=== PATIENT | male | born 1980 | race Caucasian/White ===

== ENCOUNTER 2019-08-09 11:49 | Emergency (ER) | payer SELFPAY ==
[2019-08-09 11:55] VITALS: BP 141/89; PULSE 67; TEMP 98.5; BMI 38.6
--- NOTE | 2019-08-09 12:12 | PDOC ---
History of Present Illness - General Chief Complaint: Pain, Acute Stated Complaint: NECK PAIN Time Seen by Provider: 08/09/19 12:02 - History of Present Illness Initial Comments: 08/09/19 12:24 Chief complaint: Right ear pain, bloody discharge, and dizziness HPI: Above symptoms for several days. Recent URI which has otherwise resolved. Review of systems: Denies fever/chills, URI symptoms, sore throat, cough, chest pain, shortness of breath, abdominal pain, nausea, vomiting, diarrhea, visual or focal neurologic symptoms, unsteadiness of gait, dysuria or other urinary tract symptoms. Remainder of systems reviewed and negative Past medical history: Otherwise healthy, no current medical or surgical problems. 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 Family history: Reviewed and noncontributory including early coronary artery disease, metabolic diseases including diabetes, or cancer Physical exam: Alert, cheerful and cooperative, mild distress due to right ear pain. Does not appear to be dizzy, vertiginous, or have unsteady gait Afebrile, vital signs normal HEENT: Clear except for the right ear, TM is injected and perforated with small amount of bloody drainage. Canal is clear Neck supple without bruit mass or nodes Lungs clear, full breath sounds bilaterally, no wheezes rales or rhonchi CV regular without murmur rub or gallop Abdomen soft nontender without mass organomegaly Neurological C2 to 12 intact except for decreased hearing in the right ear. Strength full and symmetric. No focal sensorimotor deficits. Gait stable and unimpaired Skin clear, no rash, adequate turgor and wet mucous membranes Extremities no CCE Impression: Resolving URI, perforated TM, irritation of the labyrinth Plan: Ear occlusion. Keep clean and dry. Antibiotic, meclizine, and ibuprofen. Follow-up ENT as directed. Fully ambulatory, pain improved, no ataxia discharged to follow-up as directed Past History - Past Medical History Allergies/Adverse Reactions: Allergies Allergy/AdvReac Type Severity Reaction Status Date / Time No Known Allergies Allergy Verified 08/09/19 11:49 Home Medications: Ambulatory Orders No Home Medications 0 dose .ROUTE UTDICT 05/27/12 Ibuprofen 800 mg PO TID PRN #20 tablet 08/09/19 Meclizine HCl [Antivert -] 25 - 50 mg PO TID PRN #20 tablet 08/09/19 Penicillin V Potassium [Pen Vee K -] 500 mg PO BID #20 tablet 08/09/19 COPD: No - Psycho Social/Smoking Cessation Hx Smoking Status: No Smoking History: Never smoked Have you smoked in the past 12 months: No Number of Cigarettes Smoked Daily: 0 Hx Alcohol Use: No Drug/Substance Use Hx: No Substance Use Type: None *Physical Exam - Vital Signs Last Vital Signs Temp Pulse Resp BP Pulse Ox 98.5 F 67 18 141/89 100 08/09/19 11:49 08/09/19 11:49 08/09/19 11:49 08/09/19 11:49 08/09/19 11:49 Discharge - Discharge Information Problems reviewed: Yes Clinical Impression/Diagnosis: Vertigo Perforated tympanic membrane Qualifiers: Laterality: right Qualified Code(s): H72.91 - Unspecified perforation of tympanic membrane, right ear Condition: Improved Disposition: HOME - Admission No - Additional Discharge Information Prescriptions: Ibuprofen 800 mg PO TID PRN #20 tablet PRN Reason: Pain Meclizine HCl [Antivert -] 25 - 50 mg PO TID PRN #20 tablet PRN Reason: Dizziness, vertigo Penicillin V Potassium [Pen Vee K -] 500 mg PO BID #20 tablet - Follow up/Referral Referrals: Osiel Roberts MD [Staff Physician] - 1 week - Patient Discharge Instructions Patient Printed Discharge Instructions: DI for Tympanic Membrane Perforation- Adult, DI for Vertigo Additional Instructions: Keep right ear occluded with cotton or gauze as directed. Do not put anything in the ear. Medication as directed. See ENT specialist for follow-up as directed. - Post Discharge Activity Work/Back to School Note: Back to Work
[2019-08-09] MEDS ORDERED: IBUPROFEN 400 MG TABLET (FP) PO ONE ×2 (12:18→12:20)
[2019-08-09] MEDS ORDERED: MECLIZINE HCL 25 MG TABLET (FP) PO ONE (12:18)
[2019-08-09] MEDS ORDERED: AMOXICILLIN 500 MG CAPSULE (FP) PO ONE (12:18)
[2019-08-09] MEDS ORDERED: MECLIZINE HCL 25 MG TABLET (FP) ONE (12:21)
[2019-08-09] MEDS ORDERED: AMOXICILLIN 250 MG CAPSULE ONE (12:21)
== END 2019-08-09 12:30 | disposition home or self-care (01) ==
LOC: FER 11:49
DX: H72.91 Unspecified perforation of tympanic membrane, right ear (principal); R42 Dizziness and giddiness
CPT/HCPCS: 99282-25